=== PATIENT | male | born 1965 | race American Indian/Alaskan Native ===

== ENCOUNTER 2021-11-02 16:05 | Emergency (ER) | payer BC, OTHER ==
[2021-11-02] MEDS ORDERED: ACETAMINOPHEN 325 MG TAB PO ONE (16:14)
[2021-11-02] MEDS ORDERED: SODIUM CHLORIDE 0.9% 1000 ML 1,000 ML IV ONE (20:16)
[2021-11-02] MEDS ORDERED: KETOROLAC 30 MG/1 ML INJ IV ONE (20:16)
[2021-11-02 20:19] VITALS: BP 145/87
[2021-11-02 20:41] LABS: Hematocrit 43.8 % (35.5-45.6); Hemoglobin 14.4 gm/dl (11.8-15.2); Mean Corpuscular HGB Conc 33 % (32-34); Mean Corpuscular Volume 89 fl (84-94); Red Blood Count 4.91 M/mm3 (3.65-5.03); Red Cell Distribution Width 14.3 % (13.2-15.2)
[2021-11-02 20:46] LABS: Platelet Count 161 K/mm3 (140-440)
[2021-11-02 20:54] LABS: INR 1.1 (0.87-1.13)
--- NOTE | 2021-11-02 21:04 | XRay Report ---
CHEST 2 VIEWS INDICATION / CLINICAL INFORMATION: Chest Pain. COMPARISON: None available. FINDINGS: SUPPORT DEVICES: None. HEART / MEDIASTINUM: No significant abnormality. LUNGS / PLEURA: No focal consolidation. There is a nodular density overlying the superior posterior a spect of the lung measuring up to 1.6 cm. No pneumothorax. ADDITIONAL FINDINGS: No significant additional findings. IMPRESSION: 1. No acute cardiopulmonary abnormality. There is a 1.6 cm nodular density noted overlying the superi or posterior lung which may represent a prominent costovertebral junction overlies an outpatient CT o f the chest should be considered. Signer Name: Ruben Crow DO Signed: 11/02/2021 9:00 PM Workstation Name: [id number]
[2021-11-02 21:08] LABS: Alanine Aminotransferase 29 units/L (7-56); Albumin 4.6 g/dL (3.9-5); BUN/Creatinine Ratio 9; Blood Urea Nitrogen 12 mg/dL (9-20); Calcium 9.8 mg/dL (8.4-10.2); Hemolysis Index 29
[2021-11-02 21:35] LABS: Band Neutrophils # (Manual) 0.1 K/mm3; Basophils % (Manual) 0 % (0.0-1.8); Total Cells Counted 100
[2021-11-02 21:36] LABS: Platelet Estimate Consistent w Auto; RBC Morphology Normal
[2021-11-02] MEDS ORDERED: MORPHINE 4 MG/1 ML INJ IV ONE (22:13)
--- NOTE | 2021-11-02 22:13 | Emergency Department Report ---
ED General Adult HPI - General Chief complaint: Pain General Stated complaint: BODY ACHES Time Seen by Provider: 11/02/21 21:19 Source: EMS Mode of arrival: Stretcher Limitations: No Limitations - History of Present Illness Initial comments: 56-year-old male with a history of sarcoidosis who now presents with chest discomfort described as pressure that has been going on for couple of days progressively getting worse. Patient's spouse who was in the examination room reported that he has been moving objects since Monday and Monday and Monday yesterday and believe that cool have contributed to the muscle discomfort that patient is having. Patient however reports some dry cough associated with fever of moderate 100 F. No other modifying or associated factors reported. Severity scale (0 -10): 6 - Related Data Previous Rx's Medication Instructions Recorded Last Taken Type predniSONE [Deltasone] 50 mg PO QDAY 5 Days #5 tab NS 11/02/21 Unknown Rx Allergies Allergy/AdvReac Type Severity Reaction Status Date / Time No Known Allergies Allergy Verified 11/02/21 21:21 ED Review of Systems ROS: Stated complaint: BODY ACHES Other details as noted in HPI Comment: All other systems reviewed and negative Cardiovascular: chest pain ED Past Medical Hx - Past Medical History Previous Medical History?: Yes Additional medical history: sarcadosis, diverticulitis, [place] - Social History Smoking Status: Never Smoker - Medications Home Medications: Home Medications Medication Instructions Recorded Confirmed Last Taken Type predniSONE [Deltasone] 50 mg PO QDAY 5 Days #5 tab NS 11/02/21 Unknown Rx ED Physical Exam - General Limitations: No Limitations General appearance: alert, in no apparent distress - Head Head exam: Present: normal inspection - Eye Eye exam: Present: normal appearance Pupils: Present: normal accommodation - ENT ENT exam: Present: normal exam, normal orophraynx, mucous membranes moist - Neck Neck exam: Present: normal inspection, full ROM. Absent: tenderness - Respiratory Respiratory exam: Present: normal lung sounds bilaterally. Absent: respiratory distress, accessory muscle use - Cardiovascular Cardiovascular Exam: Present: regular rate, normal rhythm, normal heart sounds - GI/Abdominal GI/Abdominal exam: Present: soft, normal bowel sounds. Absent: tenderness - Extremities Exam Extremities exam: Present: normal inspection - Back Exam Back exam: Present: normal inspection - Neurological Exam Neurological exam: Present: alert, oriented X3 - Psychiatric Psychiatric exam: Present: normal affect, normal mood ED Course Vital Signs 11/02/21 11/02/21 11/02/21 16:09 20:17 20:20 Temperature 101.1 F H 101.5 F H 101.5 F H Pulse Rate 104 H 87 87 Respiratory 16 15 Rate Blood Pressure 145/87 Blood Pressure 137/94 145/87 [Left] O2 Sat by Pulse 98 98 Oximetry 11/02/21 20:22 Temperature Pulse Rate Respiratory Rate Blood Pressure Blood Pressure [Left] O2 Sat by Pulse 97 Oximetry - Reevaluation(s) Reevaluation #1: 11/02/21 22:11 chest pain -- that could be true OH, muscular considering recent heavy duty objects-- will go ahead and rule out with routine labs and cardiac enzyme with EKG and CXR imaging-- given aspirin and morphine for pain 11/02/21 23:55 Noted with normal sinus rhythm at a rate of 83 bpm and is normal EKG--coupled with normal troponin and chest wall tenderness on physical exam makes this likely noncardiac--and considering recent heavy lifting--makes it is plausible for likely muscular we will discharge patient home on steroids to help the inflammation and the pain. We also have patient follow-up with the primary doctor and wanted to return to emergency room if symptoms worsen ED Medical Decision Making - Lab Data Result diagrams: 11/02/21 20:21 11/02/21 20:21 Critical care attestation.: If time is entered above; I have spent that time in minutes in the direct care of this critically ill patient, excluding procedure time. ED Disposition Clinical Impression: Non-cardiac chest pain, Muscle strain Disposition: HOME / SELF CARE / HOMELESS Is pt being admited?: No Does the pt Need Aspirin: No Condition: Stable Instructions: Nonspecific Chest Pain, Adult, [id number], Costochondritis Additional Instructions: Please take your steroids as prescribed to help your symptoms Call and schedule follow-up with your primary doctor in the next 3 to 5 days for progress Please do not hesitate to call or return to emergency if your symptoms worsen Prescriptions: predniSONE [Deltasone] 50 mg PO QDAY 5 Days #5 tab NS Referrals: PRIMARY CARE, [Primary Care Provider] - 3-5 Days Time of Disposition: 23:58
[2021-11-02 22:52] LABS: Amphetamine Screen,Urine PRESUMPTIVE NEGATIVE; Benzodiazepines Screen,Urine PRESUMPTIVE NEGATIVE; Cannabinoid Screen,Urine PRESUMPTIVE NEGATIVE; Cocaine Screen,Urine PRESUMPTIVE NEGATIVE; Methadone Screen,Urine PRESUMPTIVE NEGATIVE; Opiate Screen,Urine PRESUMPTIVE NEGATIVE
[2021-11-02 22:53] LABS: Bilirubin,Urine NEG (Negative); Blood,Urine NEG (Negative); Color,Urine Yellow (Yellow); Mucus,Urine 3+ /HPF; Protein,Urine <15 mg/dL mg/dL (Negative); Urobilinogen,Urine < 2.0 mg/dL (<2.0); WBC,Urine < 1.0 /HPF (0.0-6.0)
== END 2021-11-03 01:02 | disposition home or self-care (01) ==
LOC: ED 16:05
DX: T14.8XXA Other injury of unspecified body region, initial encounter (principal); R07.89 Other chest pain; K57.92 Diverticulitis of intestine, part unspecified, without perforation or abscess without bleeding; X50.0XXA Overexertion from strenuous movement or load, initial encounter; Y93.89 Activity, other specified; Y92.89 Other specified places as the place of occurrence of the external cause; Y99.8 Other external cause status; Z79.899 Other long term (current) drug therapy
CPT/HCPCS: 36415; 71046; 80053; 80307; 81001; 83690; 83880; 84484; 85007; 85025; 85610; 86140; 93005; 96361; 96374; 99284; J1885; J7030; 96375; J2270